=== PATIENT | female | born 1965 ===

== ENCOUNTER 2016-09-28 08:57 | Day surgery (SDC) | payer OTHER ==
[~2016-09-28 08:57] MED LIST: Lactated Ringers 1,000 ML IV SCH; Lidocaine 1%/Sod Bicarbonate in NS 8.4% 1 ML Syringe PRN; Sodium Chloride 0.9% 10 ML Syringe FLUSH PRN
[2016-09-28] MEDS ORDERED: LORazepam 2 MG/ML MDV IVPUSH ONE (09:36)
[2016-09-28] MEDS ORDERED: Bupivacaine 0.5%/EPINEPHrine 1:200,000 50 ML MDV ONE (09:41)
--- NOTE | 2016-09-28 09:42 | PCM.PREANE ---
Preanesthetic Assessment - Anesthesia/Transfusion/Family Hx Anesthesia History: Prior Anesthesia Without Reaction Family History of Anesthesia Reaction: No Transfusion History: No Prior Transfusion(s) - Review of Systems General: Night Sweats, Other (high anxiety) Pulmonary: No Symptoms Cardiovascular: No Symptoms Gastrointestinal: No symptoms Neurological: No Symptoms, Numbness (somtimes right arm) Other: Reports: None - Physical Assessment NPO Status Date: 09/27/16 NPO Status Time: 00:00 Pulse: 75 O2 Sat by Pulse Oximetry: 99 Respiratory Rate: 20 Blood Pressure: 151/91 Temperature: 37.6 C Height: 1.73 m Weight: 84.368 kg ASA Class: 2 Mental Status: Alert & Oriented x3 Airway Class: Mallampati = 1 Dentition: Reports: Normal Dentition Thyro-Mental Finger Breadths: 3 Mouth Opening Finger Breadths: 3 ROM/Head Extension: Full Lungs: Clear to auscultation, Normal respiratory effort Cardiovascular: Regular Rate, Regular Rhythm, No Murmurs - Lab Values: Laboratory Last Values WBC 12.60 K/mm3 (3.98-10.04) H 09/27/16 14:53 RBC 4.45 M/mm3 (3.98-5.22) 09/27/16 14:53 Hgb 14.1 gm/L (11.2-15.7) 09/27/16 14:53 Hct 41.4 % (34.1-44.9) 09/27/16 14:53 MCV 93.0 fl (79.4-94.8) 09/27/16 14:53 MCH 31.7 pg (25.6-32.2) 09/27/16 14:53 MCHC 34.1 g/dl (32.2-35.5) 09/27/16 14:53 RDW Std Deviation 45.2 fL (36.4-46.3) 09/27/16 14:53 Plt Count 291 K/mm3 (182-369) 09/27/16 14:53 MPV 8.9 fl (9.4-12.3) L 09/27/16 14:53 Neut % (Auto) 68.7 % (34.0-71.1) 09/27/16 14:53 Lymph % (Auto) 24.0 % (19.3-51.7) 09/27/16 14:53 Chaves % (Auto) 6.0 % (4.7-12.5) 09/27/16 14:53 Eos % (Auto) 1.0 (0.7-5.8) 09/27/16 14:53 Baso % (Auto) 0.1 % (0.1-1.2) 09/27/16 14:53 Neut # (Auto) 8.68 K/mm3 (1.56-6.13) H 09/27/16 14:53 Lymph # (Auto) 3.02 K/mm3 (1.18-3.74) 09/27/16 14:53 Chaves # (Auto) 0.75 K/mm3 (0.24-0.36) H 09/27/16 14:53 Eos # (Auto) 0.12 K/mm3 (0.04-0.36) 09/27/16 14:53 Baso # (Auto) 0.01 K/mm3 (0.01-0.08) 09/27/16 14:53 Blood Type A NEGATIVE 09/27/16 14:53 Gel Antibody Screen Negative 09/27/16 14:53 - Blood Blood Available: No Product(s) Available: None - Anesthesia Plan Pre-Op Medication Ordered: Anxiolytic - Acknowledgements Anesthesia Type Planned: MAC Pt an Appropriate Candidate for the Planned Anesthesia: Yes Alternatives and Risks of Anesthesia Discussed w Pt/Guardian: Yes Pt/Guardian Understands and Agrees with Anesthesia Plan: Yes PreAnesthesia Questionnaire - SUBSTANCE USE Smoking Status *Q: Current Every Day Smoker Tobacco Use Within Last Twelve Months: Cigarettes Second Hand Smoke Exposure: Yes Days Per Week of Alcohol Use: 2 Number of Drinks Per Day: 3 Total Drinks Per Week: 6 Recreational Drug Use History: Yes Recreational Drug Type: Reports: Marijuana/Hashish - CURRENT (IN HOUSE) MEDS Current Meds: Current Medications Lactated Ringer's (Ringers, Lactated) 1,000 mls @ 125 mls/hr IV ASDIRECTED CODY Stop: 09/28/16 23:00 Lidocaine/Sodium Bicarbonate (Buffered Lidocaine 1% In Ns 8.4%) 0.25 ml .XX ONETIME PRN PRN Reason: Prior to IV Start Stop: 09/28/16 18:00 Sodium Chloride (Saline Flush) 10 ml FLUSH ASDIRECTED PRN PRN Reason: Keep Vein Open Stop: 09/28/16 18:00
[2016-09-28] MEDS ORDERED: fentaNYL 100 MCG/2 ML SDV ONE (10:07)
[2016-09-28] MEDS ORDERED: Ondansetron 4 MG/2 ML SDV ONE (10:07)
[2016-09-28] MEDS ORDERED: Propofol 200 MG/20 ML SDV ONE (10:07)
[2016-09-28] MEDS ORDERED: Lidocaine 1% 4 ML ONE (10:08)
[2016-09-28] MEDS ORDERED: ceFAZolin 1 GM Vial ONE (10:08)
[2016-09-28] MEDS ORDERED: Midazolam 1 MG/ML 2 ML SDV ONE (10:08)
--- NOTE | 2016-09-28 11:05 | PCM.OPNOTE ---
- General Post-Op/Procedure Note Date of Surgery/Procedure: 09/28/16 Operative Procedure(s): Biopsy of the perineum [id number] Pre Op Diagnosis: Skin nodule R22.9 Post-Op Diagnosis: Same Anesthesia Technique: General ET tube Primary Surgeon: Adrian Brown Anesthesia Provider: Ten Dillard Fluid Replacement, Intraop: 1,000 EBL in mLs: 2 Drain/Tube Comments:: None Complications: None Condition: Good Free Text/Narrative:: Patient was transported to operating room #2 and placed under general anesthesia in the low dorsal lithotomy position the area of the subcutaneous nodule was marked and sterile prep performed SCDs in place and functioning prior to surgery patient received 2 g of Ancef prior surgery. Timeout confirmed patient's name Raymond Valadez procedure is removal of skin nodule left side at junction of thigh and perineum having May the area of the nodule in elliptical incision was made removing the entire nodule and sent to pathology for tissue evaluation subcutaneous tissue was closed with 3-0 Monocryl running locking suture and subcuticular suture of 4-0 Monocryl for skin closure followed by Dermabond Preneo estimated blood loss 2 mL surgery time 12 minutes patient transported postanesthesia care unit in satisfactory condition Tylenol Motrin for pain postop should be sufficient keep the incision area drive for 6 weeks until completely healed
[2016-09-28] MEDS ORDERED: fentaNYL 100 MCG/2 ML SDV IVPUSH PRN (11:07)
--- NOTE | 2016-09-28 11:11 | PCM.POSTAN ---
POST ANESTHESIA ASSESSMENT - MENTAL STATUS Mental Status: somnolent - VITAL SIGNS Pulse Rate: 76 SaO2: 93 Resp Rate: 12 Blood Pressure: 110/62 Temperature: 36.6 C - RESPIRATORY Respiratory Status: respiratory rate WNL, airway patent, O2 saturation stable, supplemental oxygen - CARDIOVASCULAR CV Status: pulse rate WNL, blood pressure stable - GASTROINTESTINAL GI Status: no symptoms - PAIN Pain Score: 0 - POST OP HYDRATION Hydration Status: adequate & stable - OBSERVATIONS Free Text/Narrative:: no anesthesia complications noted
[2016-09-28 12:44] VITALS: BP 114/82
== END 2016-09-28 12:28 | disposition home or self-care (01) ==
LOC: JD.SDS 08:57
PROVIDERS: ATTEND Obstetrics & Gynecology
DX: L72.0 Epidermal cyst (principal); L08.9 Local infection of the skin and subcutaneous tissue, unspecified; F17.210 Nicotine dependence, cigarettes, uncomplicated; M81.0 Age-related osteoporosis without current pathological fracture; F41.9 Anxiety disorder, unspecified; F32.9 Major depressive disorder, single episode, unspecified; M06.9 Rheumatoid arthritis, unspecified; Z90.710 Acquired absence of both cervix and uterus; Z98.890 Other specified postprocedural states; Z79.899 Other long term (current) drug therapy
CPT/HCPCS: 11420; 12041; 36415; 85025; 86850; 86900; 86901; 88305; J0690; J2060; J2250; J2405; J3010; J7120; 00400; J2704